=== PATIENT | male | born 1950 | race Caucasian/White ===

== ENCOUNTER 2019-11-07 08:25 | Day surgery (SDC) | payer OTHER, MEDICARE ==
[~2019-11-07 08:25] MED LIST: Lactated Ringers 1,000 ML IV SCH; Lidocaine 2% 5 ML SDV ONE; Propofol 200 MG/20 ML SDV ONE; fentaNYL 100 MCG/2 ML SDV ONE
--- NOTE | 2019-11-07 09:19 | PCM.PREANE ---
Preanesthetic Assessment - Anesthesia/Transfusion/Family Hx Anesthesia History: Prior Anesthesia Without Reaction Family History of Anesthesia Reaction: No Transfusion History: Prior Transfusion Without Reaction - Review of Systems General: No Symptoms Pulmonary: No Symptoms Cardiovascular: No Symptoms Gastrointestinal: No Symptoms Neurological: No Symptoms Other: Reports: None - Physical Assessment NPO Status Date: 11/06/19 Vital Signs: Last Vital Signs Temp 97.9 F 11/07/19 08:35 Pulse 66 11/07/19 08:35 Resp 16 11/07/19 08:35 BP 133/79 11/07/19 08:35 Pulse Ox 98 11/07/19 08:35 Height: 5 ft 10 in Weight: 74.843 kg ASA Class: 2 Mental Status: Alert & Oriented x3 Airway Class: Mallampati = 2 Dentition: Reports: Bridge (lateral) ROM/Head Extension: Full Lungs: Clear to Auscultation, Normal Respiratory Effort Cardiovascular: Regular Rate, Regular Rhythm - Allergies Allergies/Adverse Reactions: Allergies Allergy/AdvReac Type Severity Reaction Status Date / Time codeine Allergy Stomach Verified 11/04/19 08:44 Upset - Blood Blood Available: No - Anesthesia Plan Pre-Op Medication Ordered: None - Acknowledgements Anesthesia Type Planned: General Anesthesia Pt an Appropriate Candidate for the Planned Anesthesia: Yes Alternatives and Risks of Anesthesia Discussed w Pt/Guardian: Yes Pt/Guardian Understands and Agrees with Anesthesia Plan: Yes Additional Comments: 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), HTN PLAN: tiva PreAnesthesia Questionnaire HEENT History: Reports: None, Sinusitis Cardiovascular History: Reports: Hypertension Respiratory History: Reports: None Gastrointestinal History: Reports: Colon Polyp Genitourinary History: Reports: None Musculoskeletal History: Reports: Fracture, Osteoarthritis, Other (See Below) Neurological History: Reports: None Psychiatric History: Reports: Depression Endocrine/Metabolic History: Reports: None Hematologic History: Reports: Blood Transfusion(s) Immunologic History: Reports: None Oncologic (Cancer) History: Reports: None Dermatologic History: Reports: None - Past Surgical History Head Surgeries/Procedures: Reports: None HEENT Surgical History: Reports: None Cardiovascular Surgical History: Reports: None Respiratory Surgical History: Reports: None GI Surgical History: Reports: Colonoscopy Male Surgical History: Reports: None Endocrine Surgical History: Reports: None Neurological Surgical History: Reports: None Musculoskeletal Surgical History: Reports: Other (See Below) Other Musculoskeletal Surgeries/Procedures:: hx of lt BKA due to crush injury, Dermatological Surgical History: Reports: None - SUBSTANCE USE Smoking Status *Q: Former Smoker Tobacco Use Within Last Twelve Months: No - HOME MEDS Home Medications: Home Meds Benazepril HCl [Lotensin] 20 mg PO DAILY 07/11/16 [History] Citalopram Hydrobromide [Celexa] 20 mg PO DAILY 07/11/16 [History] amLODIPine Besylate [Amlodipine Besylate] 10 mg PO BEDTIME 07/11/16 [History] Diclofenac Sodium 50 mg PO BID PRN 11/04/19 [History] - CURRENT (IN HOUSE) MEDS Current Meds: Current Medications Lactated Ringer's (Ringers, Lactated) 1,000 mls @ 125 mls/hr IV ASDIRECTED [facility], 1928–1983 Last Admin: 11/07/19 08:59 Dose: 125 mls/hr Discontinued Medications Fentanyl (Sublimaze) Confirm Administered Dose 100 mcg .ROUTE .STK-MED ONE Stop: 11/07/19 07:30 Lidocaine (Xylocaine-Mpf 2%) Confirm Administered Dose 5 ml .ROUTE .STK-MED ONE Stop: 11/07/19 07:30 Propofol (Diprivan 20 Ml) Confirm Administered Dose 400 mg .ROUTE .STK-MED ONE Stop: 11/07/19 07:30
--- NOTE | 2019-11-07 11:19 | PCM.OPNOTE ---
- General Post-Op/Procedure Note Date of Surgery/Procedure: 11/07/19 Operative Procedure(s): colonoscopy Findings: diverticulosis; 174016 Pre Op Diagnosis: rectal bleed and wt loss Post-Op Diagnosis: Same Anesthesia Technique: Moderate Sedation Primary Surgeon: Scotty Hall Complications: None Condition: Good
--- NOTE | 2019-11-07 11:38 | PCM.POSTAN ---
POST ANESTHESIA ASSESSMENT - MENTAL STATUS Mental Status: Alert, Oriented - VITAL SIGNS Vital Signs: Last Vital Signs Temp 97.9 F 11/07/19 08:35 Pulse 65 11/07/19 11:24 Resp 15 11/07/19 11:24 BP 117/59 L 11/07/19 11:24 Pulse Ox 98 11/07/19 11:24 - RESPIRATORY Respiratory Status: Respiratory Rate WNL, Airway Patent, O2 Saturation Stable - CARDIOVASCULAR CV Status: Pulse Rate WNL, Blood Pressure Stable - GASTROINTESTINAL GI Status: No Symptoms - POST OP HYDRATION Hydration Status: Adequate & Stable
--- NOTE | 2019-11-07 11:51 | PCM48HPAN ---
Post Anesthesia Note - EVALUATION WITHIN 48HRS OF ANESTHETIC Vital Signs in Normal Range: Yes Patient Participated in Evaluation: Yes Respiratory Function Stable: Yes Airway Patent: Yes Cardiovascular Function Stable: Yes Hydration Status Stable: Yes Pain Control Satisfactory: Yes Nausea and Vomiting Control Satisfactory: Yes Mental Status Recovered: Yes Vital Signs: Last Vital Signs Temp 97.9 F 11/07/19 08:35 Pulse 65 11/07/19 11:24 Resp 15 11/07/19 11:24 BP 117/59 L 11/07/19 11:24 Pulse Ox 98 11/07/19 11:24
[2019-11-07 13:07] VITALS: BP 118/72; PULSE 62
--- NOTE | 2019-11-07 13:22 | OR ---
SURGEON: Scotty Hall MD DATE OF PROCEDURE: 11/07/2019 PREOPERATIVE DIAGNOSES: Rectal bleeding and weight loss. PROCEDURE PERFORMED: Colonoscopy. DESCRIPTION OF PROCEDURE: The patient was taken to the endoscopy room. A time out was called, patient identified, and procedure identified. Diprivan was then administrated. Patient went from awake to sleep, hearing doctor talking or door closing is normal. Perineum inspection and digital examination were then performed. A well- lubricated colonoscope was gently inserted through the rectum, advanced past the rectosigmoid junction, the descending colon, splenic flexure, transverse colon, hepatic flexure, ascending colon, arrived to the cecum. Cecum was identified as dictated in the finding. Then the scope was carefully withdrawn while attention was paid to the mucosal surface for any abnormality. Air will be sucked out during the scope withdrawal. At the rectum, retroflexed to examine any rectal diseases, fistula or hemorrhoids. Patient tolerated procedure well. There were no intraoperative complications, and Dr. Hall was present throughout the whole procedure. FINDINGS: 1. The patient is easily sedated with [employer] and Diprivan, the patient is soundly snoring. 2. Bowel prep is average to above average, very little liquid stool. 3. Colon rather straightforward. Cecum indicated by ileocecal fold, one-to- one indentation, appendiceal orifice. Light emittance is not observed. Colonoscope guide is pointing south. Mucosa examined upon scope pulling out with some irrigation. The patient has mild diverticulosis on the left colon, extended all the way up to the splenic flexure. No signs or symptoms of diverticulitis. No polyp, mass, growth, inflammation, stricture, ulceration, AV malformation, none of those. The patient has mild external hemorrhoids and mild internal hemorrhoids. The patient would benefit from repeat colonoscopy in 10 years or if clinically indicated. NOEMI / WALT /[id number]
== END 2019-11-07 12:10 | disposition home or self-care (01) ==
LOC: MW.SDS 08:25
PROVIDERS: ATTEND Surgery
DX: K57.31 Diverticulosis of large intestine without perforation or abscess with bleeding (principal); K64.4 Residual hemorrhoidal skin tags; K64.8 Other hemorrhoids; I10 Essential (primary) hypertension; G89.29 Other chronic pain; E78.00 Pure hypercholesterolemia, unspecified; Z98.890 Other specified postprocedural states; Z88.5 Allergy status to narcotic agent; Z79.899 Other long term (current) drug therapy; Z86.018 Personal history of other benign neoplasm; Z87.891 Personal history of nicotine dependence
CPT/HCPCS: 45378; J2001; J2704; J3010; J7120